=== PATIENT | female | born 1990 | race Caucasian/White ===

== ENCOUNTER 2016-05-21 10:55 | Inpatient (IN) | payer MEDICAID ==
[~2016-05-21] VITALS: Ht 166.6 cm; Wt 106.1 kg
[~2016-05-21 10:55] MED LIST: FERR-63 PO; FOLI-43 PO; OCD MT; PREN-88 PO
[2016-05-21] MEDS ORDERED: LIDOCAINE HCL 1% 20ML VIAL (Pyxis) INJ INFIL SCH (13:00)
[2016-05-21] MEDS ORDERED: NALOXONE HCL 0.4 MG/ML 1ML VIAL IM PRN ×2 (13:00→18:45)
[2016-05-21 13:03] LABS: CLARITY URINE CLOUDY (CLEAR); COLOR URINE DARK YELLOW (YELLOW); GLUCOSE URINE NEGATIVE (NEGATIVE); KETONES URINE TRACE (NEGATIVE); LEUKOCYTE ESTERASE URINE 1+ (NEGATIVE); NITRITE URINE NEGATIVE (NEGATIVE); OCCULT BLOOD URINE NEGATIVE (NEGATIVE); PROTEIN URINE TRACE (NEGATIVE); SPECIFIC GRAVITY URINE 1.028 (1.005-1.030)
[2016-05-21 13:04] LABS: BASOPHILS % 0.3 % (0.0-2.0); EOSINOPHILS % 0.7 % (0.0-5.0); HEMATOCRIT. 35.5 % (36.0-48.0); HEMOGLOBIN. 11.9 g/dL (12.0-16.0); LYMPHOCYTES % 16.4 % (20.0-50.0); MEAN CORPUSCULAR HEMOGLOBIN 31.5 pg (28.0-32.0); MEAN CORPUSCULAR HGB CONC 33.6 g/dL (31.0-37.0); MEAN CORPUSCULAR VOLUME 93.7 fL (81.0-99.0); MEAN PLATELET VOLUME 9.7 fl (7.4-10.4); MONOCYTES % 7.3 % (2.0-8.0); NEUTROPHILS % 75.3 % (40.0-76.0); PLATELET 128 x1000/uL (130-400); RED BLOOD CELL COUNT 3.79 mill/uL (4.2-5.4); RED CELL DISTRIBUTION WIDTH 14.2 % (11.6-14.6); WHITE BLOOD COUNT 10.9 x1000/uL (4.5-11.0)
[2016-05-21 13:10] LABS: INR 0.9; PARTIAL THROMBOPLASTIN TIME 26.6 sec (24.0-34.0); PROTHROMBIN TIME 9.7 sec
[2016-05-21] MEDS: LACTATED RINGERS 1,000 ML IV SCH ×4 (13:11→21:10)
[2016-05-21 13:14] LABS: MUCUS URINE 3+ /lpf (< = 2+); SQUAMOUS EPITHELIAL CELL URINE 3+ /lpf (RARE/1+); WBC URINE 15-25 /hpf (0-2)
[2016-05-21 13:15] LABS: BACTERIA URINE 2+; RBC URINE 0-2 /hpf (0-2)
[2016-05-21] MEDS: DEXT 5%/LR + PITOCIN 20UNITS/L 1,000 ML IV SCH (13:20)
[2016-05-21 13:24] LABS: *AMPHETAMINES SCREEN URINE NEGATIVE (NEGATIVE); *BARBITURATES SCREEN URINE NEGATIVE (NEGATIVE); *BENZODIAZEPINES SCREEN URINE NEGATIVE (NEGATIVE); *COCAINE SCREEN URINE NEGATIVE (NEGATIVE); CANNABINOID URINE SCREEN NEGATIVE (NEGATIVE); ECSTASY MDMA SCREEN URINE NEGATIVE (NEGATIVE); METHADONE URINE SCREEN NEGATIVE (NEGATIVE); OPIATES URINE SCREEN NEGATIVE (NEGATIVE); PHENCYCLIDINE URINE SCREEN NEGATIVE (NEGATIVE)
[2016-05-21 13:56] LABS: HEPATITIS B SURFACE ANTIGEN NEGATIVE; RUBELLA IGG 17.9 IU/mL (4.99-10)
[2016-05-21] MEDS: BUTORPHANOL TARTRATE 2 MG/ML VIAL IV PRN ×2 (16:12→19:51)
[2016-05-21] MEDS ORDERED: METHYLERGONOVINE MALEATE 0.2 MG/ML IM PRN (18:45)
[2016-05-21] MEDS ORDERED: CARBOPROST TROMETHAMINE 250 MCG/ML AMPUL IM PRN (18:45)
[2016-05-21] MEDS ORDERED: BUPIVACAINE HCL/PF 0.25% (2.5MG/ML) 10ML ONE (20:22)
[2016-05-21] MEDS ORDERED: FENTANYL CITRATE/PF 50MCG/ML 5ML VIAL ONE (20:22)
[2016-05-21] MEDS ORDERED: BUPIVACAINE HCL/NS/PF EPIDURAL 100 ML EP ONE (20:22)
[2016-05-21] MEDS ORDERED: BUPIVACAINE HCL/NS/PF EPIDURAL 100 ML EP SCH (21:00)
[2016-05-22] MEDS ORDERED: ACETAMINOPHEN 325MG TABLET PO PRN (00:45)
[2016-05-22] MEDS ORDERED: AMPICILLIN 2,000 MG in SODIUM CHLORIDE 0.9% 100 ML IV SCH (00:45)
[2016-05-22] MEDS ORDERED: GENTAMICIN 120MG PREMIX 100 ML IV SCH (00:45)
[2016-05-22] MEDS ORDERED: GENTAMICIN SULFATE 150 MG in SODIUM CHLORIDE 0.9% 100 ML IV NR (01:15)
[2016-05-22] MEDS ORDERED: DEXT 5%/LR + PITOCIN 20UNITS/L 1,000 ML IV SCH (02:26)
[2016-05-22] MEDS ORDERED: LANOLIN OINT 0.25 GM TUBE TOP PRN (02:30)
[2016-05-22] MEDS ORDERED: HEMORRHOIDAL SUPP PR PRN (02:30)
[2016-05-22] MEDS ORDERED: BISACODYL 10MG SUPP PR PRN (02:30)
[2016-05-22] MEDS ORDERED: DIPHENHYDRAMINE 25MG CAPSULE PO PRN (02:30)
[2016-05-22] MEDS ORDERED: BENZOCAINE/LANOLIN/ALOE VERA SPRAY TOP PRN (02:30)
[2016-05-22] MEDS ORDERED: METHYLERGONOVINE MALEATE 0.2 MG/ML IM PRN (02:30)
[2016-05-22] MEDS ORDERED: MISOPROSTOL 200MCG TABLET ONE (02:51)
[2016-05-22] MEDS ORDERED: MISOPROSTOL 200MCG TABLET RC NR (03:30)
[2016-05-22] MEDS: DEXT 5%/LR + PITOCIN 20UNITS/L 1,000 ML IV SCH (03:30)
[2016-05-22] MEDS: CEFAZOLIN 2,000 MG in DEXT 5% WATER 100 ML IV SCH ×2 (04:17→12:07)
[2016-05-22 05:15] VITALS: BP 105/64
[2016-05-22 05:45] VITALS: BP 104/71
[2016-05-22 06:15] VITALS: BP 105/72
[2016-05-22] MEDS: IBUPROFEN 400MG TABLET PO PRN ×2 (06:49→21:20)
[2016-05-22] MEDS: GLYCERIN/WITCH HAZEL LEAF MEDICATED PAD TOP PRN (06:49)
[2016-05-22 07:35] VITALS: BP 90/51
[2016-05-22] MEDS: SIMETHICONE 80MG TABLET CHEW PO SCH ×4 (08:39→21:06)
[2016-05-22] MEDS: MAGNESIUM/ALUMINUM HYDROXIDE/SIMETHICONE 30ML UDC PO SCH ×4 (08:39→21:04)
[2016-05-22] MEDS: PRENATAL VIT/FE FUMARATE/FA TABLET PO SCH (08:40)
[2016-05-22] MEDS: ACETAMINOPHEN WITH CODEINE 300/30MG TABLET PO PRN ×2 (08:40→16:17)
[2016-05-22 08:54] LABS: CHLORIDE 107 mEq/L (98-107); INDEX HEMOLYSI 1 (1-3); INDEX ICTERIC 1 (1-4); INDEX LIPEMIC 1 (1-3)
[2016-05-22 09:02] LABS: ALBUMIN 2.3 g/dL (3.4-5.0); ANION GAP 13; CALCIUM 8.6 mg/dL (8.5-10.1); CARBON DIOXIDE 23 mEq/L (21-32); PHOSPHORUS 2.5 mg/dL (2.5-4.9); UREA NITROGEN BLOOD 5 mg/dL (7-21); eGFR > 60 mL/min (>60)
[2016-05-22 09:17] LABS: BASOPHILS % 0.2 % (0.0-2.0); EOSINOPHILS % 0.3 % (0.0-5.0); HEMATOCRIT. 32.9 % (36.0-48.0); HEMOGLOBIN. 11.1 g/dL (12.0-16.0); MEAN CORPUSCULAR HEMOGLOBIN 31.7 pg (28.0-32.0); MEAN CORPUSCULAR HGB CONC 33.7 g/dL (31.0-37.0); MEAN CORPUSCULAR VOLUME 94.2 fL (81.0-99.0); MEAN PLATELET VOLUME 9.7 fl (7.4-10.4); MONOCYTES % 6.8 % (2.0-8.0); NEUTROPHILS % 81.7 % (40.0-76.0); PLATELET 89 x1000/uL (130-400); RED BLOOD CELL COUNT 3.49 mill/uL (4.2-5.4); RED CELL DISTRIBUTION WIDTH 13.7 % (11.6-14.6); WHITE BLOOD COUNT 15.8 x1000/uL (4.5-11.0)
[2016-05-22 15:00] VITALS: BP 100/51
[2016-05-22 20:00] VITALS: BP 107/72
[2016-05-22] MEDS: DOCUSATE SODIUM 100MG CAPSULE PO SCH (21:05)
[2016-05-23 05:10] VITALS: BP 105/70
[2016-05-23 07:40] VITALS: BP 104/60
[2016-05-23] MEDS: SIMETHICONE 80MG TABLET CHEW PO SCH ×4 (08:27→20:45)
[2016-05-23] MEDS: MAGNESIUM/ALUMINUM HYDROXIDE/SIMETHICONE 30ML UDC PO SCH ×4 (08:27→20:44)
[2016-05-23] MEDS: ACETAMINOPHEN WITH CODEINE 300/30MG TABLET PO PRN ×3 (08:28→22:13)
[2016-05-23] MEDS: PRENATAL VIT/FE FUMARATE/FA TABLET PO SCH (08:28)
[2016-05-23] MEDS: FERROUS SULFATE 325MG TABLET PO SCH ×2 (12:16→17:54)
[2016-05-23 16:01] VITALS: BP 91/60
[2016-05-23] MEDS: IBUPROFEN 400MG TABLET PO PRN (17:55)
[2016-05-23 20:00] VITALS: BP 98/68
[2016-05-23] MEDS: GLYCERIN/WITCH HAZEL LEAF MEDICATED PAD TOP PRN (20:18)
[2016-05-23] MEDS: DOCUSATE SODIUM 100MG CAPSULE PO SCH (20:44)
[2016-05-24] MEDS ORDERED: TETANUS, DIPHTHERIA, PERTUSSIS VAC/PF 0.5ML (>7YR OLD) IM ONE (04:15)
[2016-05-24 04:30] VITALS: BP 101/69
[2016-05-24 08:20] VITALS: BP 109/74
[2016-05-24] MEDS: PRENATAL VIT/FE FUMARATE/FA TABLET PO SCH (08:34)
[2016-05-24] MEDS: SIMETHICONE 80MG TABLET CHEW PO SCH (08:34)
[2016-05-24] MEDS: MAGNESIUM/ALUMINUM HYDROXIDE/SIMETHICONE 30ML UDC PO SCH (08:34)
[2016-05-24] MEDS: ACETAMINOPHEN WITH CODEINE 300/30MG TABLET PO PRN ×2 (08:35→11:38)
[2016-05-24] MEDS: FERROUS SULFATE 325MG TABLET PO SCH (08:45)
[2016-05-24] MEDS: GLYCERIN/WITCH HAZEL LEAF MEDICATED PAD TOP PRN (11:23)
[2016-05-24 11:38] VITALS: BP 109/74
== END 2016-05-24 12:20 | disposition home or self-care (01) | DRG 560 ==
LOC: L&D 10:55 → OBSVTOIN 10:55 → 8EST 05-22 05:10
PROVIDERS: ADMIT Obstetrics & Gynecology; ATTEND Obstetrics & Gynecology
PROC: 00HU33Z Insertion of Infusion Device into Spinal Canal, Percutaneous Approach (ICD-10-PCS; 2016-05-22)
PROC: 3E0R3CZ (ICD-10-PCS; 2016-05-22)
PROC: 10E0XZZ Delivery of Products of Conception, External Approach (ICD-10-PCS; principal; 2016-05-22 02:30)
DX: O48.0 Post-term pregnancy (principal); Z37.0 Single live birth; Z3A.41 41 weeks gestation of pregnancy
CPT/HCPCS: 36415; 80069; 80305; 81001; 85025; 85610; 85730; 86592; 86703; 86762; 86850; 86900; 87340; 90715; J0290; J0595; J0690; J1580; J2590; J3010; J3490; J7050; J7060; J7120

== ENCOUNTER 2019-04-11 15:03 | Emergency (ER) | payer MEDICAID ==
[~2019-04-11] VITALS: Ht 167.6 cm; Wt 96.7 kg
[2019-04-12] MEDS ORDERED: KETOROLAC 60MG/2ML VIAL IM ONE (02:00)
[2019-04-12] MEDS ORDERED: PREDNISONE 20MG TABLET PO ONE (02:00)
[2019-04-12 04:25] VITALS: BP 125/84
== END 2019-04-12 04:26 | disposition home or self-care (01) ==
LOC: ER 15:03
DX: G89.18 Other acute postprocedural pain (principal); M79.622 Pain in left upper arm; R03.0 Elevated blood-pressure reading, without diagnosis of hypertension
CPT/HCPCS: 96372; 99283; J1885; J7512